=== PATIENT | female | born 1975 | race Caucasian/White ===

== ENCOUNTER 2019-02-14 19:05 | Emergency (ER) | payer BC ==
[~2019-02-14] VITALS: Ht 162.6 cm; Wt 79.4 kg
[~2019-02-14 19:05] MED LIST: ALPRAZOLAM; LEXAPRO 10 MG T10 M1 PO; NEXIUM20 M1 PO; NEXIUM40 MG PO; TOPROL XL25 MG PO; TRAMADOL 50 MG50 MG PO
[2019-02-14] MEDS ORDERED: [UNRECOGNIZED DRUG - OTHER] (19:24)
[2019-02-14 19:40] LABS: URINE BILIRUBIN NEGATIVE (Negative); URINE BLOOD TRACE (Negative); URINE CLARITY CLEAR; URINE COLOR YELLOW; URINE GLUCOSE-RANDOM NEGATIVE (Negative); URINE KETONES 1+ (Negative); URINE LEUKOCYTES-REFLEX NEGATIVE (Negative); URINE NITRITE-REFLEX NEGATIVE (Negative); URINE PROTEIN NEGATIVE (Negative); URINE SPECIFIC GRAVITY 1.025 (1.005-1.030); URINE UROBILINOGEN 0.2 E.U./dl (0.2-1.0)
[2019-02-14 20:11] LABS: ABSOLUTE LYMPHOCYTES 1.9 thou/uL (0.8-5.3); ABSOLUTE MONOCYTES 0.5 thou/uL (0.0-1.2); ABSOLUTE NEUTROPHILS 7.8 thou/uL (1.6-8.1); BASOPHILS 0.4 %; EOSINOPHILS 0.4 %; HEMATOCRIT 38.2 % (37.0-47.0); HEMOGLOBIN 12.6 gm/dL (12.0-15.0); LYMPHOCYTES 18.3 %; MCHC 33.1 g/dL (28.0-37.0); MCV 81.8 fL (80.0-100.0); MONOCYTES 4.7 %; MPV 8.9 fl. (7.2-11.1); NUCLEATED RBCS 0 /100WBC; PLATELET COUNT* 347 thou/uL (150-400); POLYS 76.2 %; RBC 4.67 mil/uL (4.20-5.00); RDW-CV 14.5 % (10.5-14.5); WBC 10.2 thou/uL (4.0-11.0)
[2019-02-14 20:22] LABS: CREATININE 0.7 mg/dL (0.6-1.3); POTASSIUM 3.9 mmol/L (3.5-5.1)
[2019-02-15] MEDS ORDERED: NORCO 7.5-3251 EACH PO (00:50)
[2019-02-15] MEDS ORDERED: ZOFRAN ODT4 MG PO (00:50)
[2019-02-15 01:15] VITALS: BP 112/62
== END 2019-02-15 01:13 | disposition home or self-care (01) ==
LOC: M.ERS 19:05
PROVIDERS: Nurse Practitioner Psychiatric/Mental Health
DX: N83.201 Unspecified ovarian cyst, right side (principal); F41.9 Anxiety disorder, unspecified; Z98.890 Other specified postprocedural states; Z88.5 Allergy status to narcotic agent; Z88.4 Allergy status to anesthetic agent; Z88.0 Allergy status to penicillin; Z90.710 Acquired absence of both cervix and uterus

== ENCOUNTER → 2020-03-14 | Outpatient (CLI) | payer OTHER ==
[~2020-03-14] MED LIST changes: +NORCO 7.5-3251 EACH PO; +ZOFRAN ODT4 MG PO; +[UNRECOGNIZED DRUG - OTHER]
[2020-03-14 09:35] LABS: ABSOLUTE BASOPHILS 0.1 thou/uL (0.0-0.2); ABSOLUTE EOSINOPHILS 0.1 thou/uL (0.0-0.7); ABSOLUTE LYMPHOCYTES 2.2 thou/uL (0.8-5.3); ABSOLUTE MONOCYTES 0.4 thou/uL (0.0-1.2); ABSOLUTE NEUTROPHILS 5.1 thou/uL (1.6-8.1); BASOPHILS 1.1 %; EOSINOPHILS 1.2 %; HEMATOCRIT 39.6 % (37.0-47.0); HEMOGLOBIN 13.3 gm/dL (12.0-15.0); LYMPHOCYTES 28.1 %; MCH 27.8 pg (26.0-34.0); MCHC 33.7 g/dL (28.0-37.0); MCV 82.5 fL (80.0-100.0); MONOCYTES 4.9 %; NUCLEATED RBCS 0 /100WBC; PLATELET COUNT* 339 thou/uL (150-400); POLYS 64.7 %; RDW-CV 13.7 % (10.5-14.5); WBC 7.8 thou/uL (4.0-11.0)
[2020-03-14 09:42] LABS: URINE BILIRUBIN NEGATIVE (Negative); URINE BLOOD TRACE (Negative); URINE CLARITY CLEAR; URINE COLOR YELLOW; URINE GLUCOSE-RANDOM NEGATIVE (Negative); URINE KETONES NEGATIVE (Negative); URINE LEUKOCYTES-REFLEX NEGATIVE (Negative); URINE NITRITE-REFLEX NEGATIVE (Negative); URINE PROTEIN NEGATIVE (Negative); URINE UROBILINOGEN 0.2 E.U./dl (0.2-1.0)
[2020-03-14 09:47] LABS: ALBUMIN 3.5 g/dL (3.4-5.0); ALKALINE PHOSPHATASE 66 U/L (46-116); ANION GAP 8 mmol/L (7-16); BUN 14 mg/dL (7-18); CALCIUM 8.7 mg/dL (8.5-10.1); CHLORIDE 102 mmol/L (98-107); CHOLESTEROL 196 mg/dL (<200); CO2 28 mmol/L (21-32); GLUCOSE 102 mg/dL (70-99); HDL CHOLESTEROL 59 mg/dL (>40); LDL CHOLESTEROL 116 mg/dL (<100); POTASSIUM 3.9 mmol/L (3.5-5.1); SERUM ASSESSMENT Clear; SGOT 12 U/L (15-37); SGPT 19 U/L (30-65); SODIUM 138 mmol/L (136-145); TC:HDL 3.3 Ratio (Not establshd); TOTAL BILIRUBIN 0.2 mg/dL (<0.1-1.0); TOTAL PROTEIN 7.7 g/dL (6.4-8.2); TRIGLYCERIDE 106 mg/dL (<150); VLDL 21 mg/dL (<40)
== END ==
LOC: M.LAB 09:02
PROVIDERS: ATTEND Family Medicine
DX: Z00.00 Encounter for general adult medical examination without abnormal findings (principal)